=== PATIENT | female | born 1985 | race Two or more races ===

== ENCOUNTER 2025-02-20 15:36 | Inpatient (IN) | payer OTHER ==
[2025-02-20 16:41] VITALS: BMI 19.1
[2025-02-20] MEDS ORDERED: hydrOXYzine PAMOATE 25 MG CAPSULE (FP) PO PRN (18:04)
[2025-02-20] MEDS ORDERED: BISMUTH SUBSALICYLATE 524 MG/30 ML PO PRN (18:04)
[2025-02-20] MEDS ORDERED: MAG HYDROX/AL HYDROX/SIMETH 30 ML UNIT-DOSE CUP PO PRN (18:04)
[2025-02-20] MEDS ORDERED: BENZOCAINE/MENTHOL (CHLORASEPTIC ) LOZENGE MM PRN (18:04)
[2025-02-20] MEDS ORDERED: POLYETHYLENE GLYCOL (HEALTHYLAX) 3350 17 GM PACKET PO PRN (18:04)
[2025-02-20] MEDS ORDERED: NICOTINE POLACRILEX 2 MG GUM BUC PRN (18:04)
[2025-02-20] MEDS ORDERED: MAGNESIUM HYDROX 2400MG/30ML ORAL SUSPENSION 30 ML CUP PO PRN (18:04)
[2025-02-20] MEDS ORDERED: LOPERAMIDE HCL 2 MG CAPSULE PO PRN (18:04)
[2025-02-20] MEDS ORDERED: BENZONATATE 200 MG CAPSULE PO PRN (18:04)
[2025-02-20] MEDS ORDERED: NICOTINE POLACRILEX 2 MG LOZENGE BC PRN (18:04)
[2025-02-20] MEDS ORDERED: P-EPHED 60MG/TRIPROLIDI 2.5MG TABLET PO PRN (18:04)
[2025-02-20] MEDS ORDERED: IBUPROFEN 400 MG TABLET (FP) PO PRN (18:04)
[2025-02-20] MEDS ORDERED: guaiFENesin 600 MG TABLET.ER (FP) PO PRN (18:04)
[2025-02-20] MEDS ORDERED: DICYCLOMINE HCL 10 MG CAPSULE PO PRN (18:04)
[2025-02-20] MEDS ORDERED: ONDANSETRON *ODT* 4 MG TABLET SL PRN (18:04)
[2025-02-20] MEDS ORDERED: NALOXONE (NARCAN) HCL 4 MG/0.1 ML SPRAY NS PRN (18:04)
[2025-02-20] MEDS ORDERED: IBUPROFEN 600 MG TABLET (FP) PO PRN (18:04)
[2025-02-20] MEDS: MELATONIN 5 MG TABLETS PO SCH (22:27)
[2025-02-20] MEDS: THIAMINE 100 MG TABLET PO SCH (22:27)
[2025-02-21 09:14] LABS: POTASSIUM 3.9 mmol/L (3.5-5.1)
[2025-02-21 09:21] LABS: ALBUMIN 3.1 g/dl (3.4-5.0); CALCIUM 8.5 mg/dL (8.5-10.1); HEMOGLOBIN 10.6 g/dL (11.2-15.7); MCHC 31.2 g/dl (32.2-35.5); MEAN CELL VOLUME 76.2 fl (79.4-94.8); MEAN PLT VOLUME 10.5 fl (9.4-12.3); PLATELET COUNT 367 x10^3/uL (182-369); RDW 13.5 % (12.2-17.1)
[2025-02-21 09:22] LABS: BLOOD UREA NITROGEN 12.3 mg/dL (7-18)
[2025-02-21 09:24] LABS: CREATININE 0.6 mg/dL (0.55-1.3)
[2025-02-21 09:26] LABS: BILIRUBIN,TOTAL 0.8 mg/dL (0.2-1); TOT PROT 6.4 g/dl (6.4-8.2)
[2025-02-21] MEDS: diazePAM 5 MG TABLET PO SCH (10:14)
[2025-02-21] MEDS: PRENATAL VITAMINS W/ FOLIC ACID TABLET (FP) PO SCH (10:14)
[2025-02-21] MEDS: ACETAMINOPHEN 325 MG TABLET (FP) PO PRN (17:14)
[2025-02-23] MEDS: diazePAM 5 MG TABLET PO SCH (05:47)
[2025-02-23] MEDS: diazePAM 5 MG TABLET PO PRN (09:25)
[2025-02-23] MEDS: METHOCARBAMOL 500 MG TABLET PO PRN (13:38)
[2025-02-23 16:49] VITALS: RESP 16
[2025-02-24] MEDS: diazePAM 5 MG TABLET PO SCH (05:31)
[2025-02-24 11:10] VITALS: BP 92/74; PULSE 75; TEMP 97.3
[2025-02-25] MEDS ORDERED: diazePAM 5 MG TABLET PO ONE (06:00)
== END 2025-02-24 11:17 | disposition home or self-care (01) | DRG 775 ==
LOC: YASAS 15:36 → Y3N 18:37
PROVIDERS: ADMIT Allergy & Immunology; ATTEND Allergy & Immunology
PROC: HZ2ZZZZ Detoxification Services for Substance Abuse Treatment (ICD-10-PCS; principal; 2025-02-19)
DX: F10.230 Alcohol dependence with withdrawal, uncomplicated (principal); F10.220 Alcohol dependence with intoxication, uncomplicated; F17.210 Nicotine dependence, cigarettes, uncomplicated
CPT/HCPCS: 36415; 80053; 80305; 80307; 81025; 85027; 86780; 93005; 93010